=== PATIENT | female | born 2005 | race Caucasian/White ===

== ENCOUNTER 2025-01-13 15:02 | Emergency (ER) | payer BC, SELFPAY ==
[2025-01-13 15:06] VITALS: BP 134/93
[2025-01-13] MEDS: NSS 1000 IV (16:17)
[2025-01-13] MEDS: ZOFRAN 4 MG IV (16:17)
[2025-01-13 16:21] VITALS: BMI 23.8
[2025-01-13 16:33] LABS: % Basophils 0.7 % (0-2); % Eosinophils 0.9 % (0-6); % Immature Granulocytes 0.3 % (0-0.5); % Lymphocytes 28.7 % (20.5-51.1); % Monocytes 7.9 % (1.7-9.3); % Neutrophils 61.5 % (42.2-75.2); Absolute Basophils 0.1 10^3/uL (0-0.2); Absolute Eosinophils 0.1 10^3/uL (0-0.7); Absolute Lymphocytes 2.1 10^3/uL (1.2-3.4); Absolute Monocytes 0.6 10^3/uL (0.1-0.6); Absolute Neutrophils 4.6 10^3/uL (1.4-6.5); Hematocrit 40.7 % (37.0-47.0); Hemoglobin 13.8 g/dL (12.0-16.0); Mean Corp Hgb Conc. 33.9 g/dL (33.0-37.0); Mean Corpuscular Hgb 29.8 pg (27.0-31.0); Mean Corpuscular Volume 87.9 fL (81.0-99.0); Mean Platelet Volume 10.8 fL (7.4-10.4); Nucleated Red Blood Cells % 0 %; Platelet Count 272 10^3/uL (130-400); Red Blood Cell Count 4.63 10^6/uL (4.20-5.40); Red Cell Dist. Width 13.9 % (11.5-14.5); White Blood Cell Count 7.5 10^3/uL (4.8-10.8)
--- NOTE | 2025-01-13 16:33 | ED.GENMED ---
History of Present Illness
General
Chief Complaint: Abdominal Symptoms
Source: patient
Exam Limitations: none
Time Seen by Provider: 01/13/25 15:31
Nursing documentation reviewed up to this point in time: agreed with
History of Present Illness
History of Present Illness:
Patient is a 19-year-old female presenting to the emergency department following 1 week of nausea, vomiting, diarrhea and concern for dehydration. Patient states symptoms started last Saturday with nausea and vomiting which was shortly followed by
diarrhea. She did have episode of bloody diarrhea on Saturday however this has resolved. Patient denies any significant abdominal pain. She reports subjective fevers at home 2 nights ago. Patient denies any urinary symptoms. No chest pain or
shortness of breath. Patient was seen by her primary care provider today who was concerned that she may be dehydrated and was sent to the ED for IV fluids.
She does report past history of rectal bleeding secondary to internal hemorrhoids.
Patient's dad does report similar symptoms last Saturday although his symptoms resolved.
Patient reports a somewhat lengthy GI history and was being seen by Joseph with frequent vomiting although no cause was identified she states that she has never had a colonoscopy or endoscopy.
Review of Systems
Review of Systems
Allergies reviewed?: Yes
All Other Systems: ROS reviewed and negative except as documented in HPI and ROS
Phy Exam
Physical Exam
Physical Exam:
Vitals: Mildly tachycardic, otherwise vital signs stable. Afebrile
General: Patient is well appearing, no acute distress. Nontoxic appearing
Skin: Warm and dry, no rashes or lesions
Head: Normocephalic, atraumatic
Eyes: Sclera nonicteric. EOMs intact. No nystagmus.
Throat: Protecting airway
Neck: Normal ROM, no cervical spine tenderness, no meningismus
Cardiac: Tachycardic, normal rhythm, no murmurs.
Pulm: Normal respiratory effort, no wheezes, rales, rhonchi heard on exam.
Abdomen: Abdomen soft. Very mild diffuse abdominal tenderness. No tenderness McBurney's point. No rebound tenderness or guarding.
Extremities: No evidence of cyanosis or edema. Palpable DP pulses bilateral
Neuro: AAOx3. Grossly intact.
Psychiatric: Normal affect.
Course
Orders/Labs/Results
Orders:
Orders
01/13/25 16:06
0.9% Sodium Chloride 1000 ml [Nss] 1,000 ml IV BOLUS
Ondansetron Injectable [Zofran] 4 mg IV NOW STA
Test Result ONCE
01/13/25 16:18
COVID-19 Antigen Urgent
Source: Nasal Swab
Complete Blood Count/With Diff Urgent
Comprehensive Metabolic Panel Urgent
HCG, Serum Qualitative Screen Urgent
Lipase Urgent
Influenza A+B Rapid Molecular Urgent
ALPHONSE Source: Nasal Swab
Specimen Description:
Abnormal Lab Results
01/13/25
16:18
MPV 10.8 H fL
(7.4-10.4)
Total Bilirubin 2.2 H mg/dl
(0.2-1.3)
Alkaline Phosphatase 37 L U/L
(38-126)
Albumin 5.1 H g/dl
(3.5-5.0)
01/13/25 16:18
01/13/25 16:18
Vital Signs
Initial and Last Documented VS:
Initial Vital Signs
Temp Pulse Resp BP Pulse Ox
98.7 F 106 20 134/93 98
01/13/25 15:06 01/13/25 15:06 01/13/25 15:06 01/13/25 15:06 01/13/25 15:06
Last Documented Vital Signs
Temp Pulse Resp BP Pulse Ox
98.5 F 77 16 120/84 99
01/13/25 18:12 01/13/25 18:12 01/13/25 18:12 01/13/25 18:12 04/30/25 18:52
MDM/Problems Addressed
Differential Diagnosis Includes:
Not limited to: Viral gastroenteritis, colitis, constipation, appendicitis, etc.
MDM/Problems Addressed:
19-year-old female presents with concerns of dehydration after seven days of nausea, vomiting, and diarrhea. Symptoms seem to be improving. No known fever or abdominal pain. Vitals and physical exam as above. Patient overall well appearing. Mildly
tachycardic on arrival with clear lung sounds. Abdomen soft with no focal tenderness. No tenderness at McBurney's point. She does have mildly dry mucous membranes. Symptoms most consistent with likely viral gastroenteritis as patients father also
had similar symptoms. Lower suspicion for acute intra-abdominal infection given benign abdominal exam. Will check screening labs give IV fluids and Zofran and reassess.
Update: labs reviewed. No leukocytosis. Chemistry unremarkable other than elevation of bilirubin which patient states is chronic as she has Gilbert�s disease. Patient feeling much better after IV fluids and Zofran. Repeat abdominal exam performed
which remains soft and nontender. Very low suspicion for acute intro abdominal infection giving patient afebrile with no leukocytosis and benign abdominal exam. Do not feel CT imaging warranted at this time. Vital signs have normalized. Patient
tolerated water and crackers without vomiting. Feel patient for discharge home with primary care/G.I. follow up. Return precautions discussed. Patient and patient�s family comfortable with plan. All questions answered.
Chronic conditions affecting care:
N/A
Acute Exacerbation and/or Progression of Chronic Illness:
N/A
*Pulse Oximetry
Patient hypoxic: no
*EKG
Interpreted by ED Provider?: NA
*Gas Scrubber Operator Interpretation
Rate: Gas Scrubber Operator- N/A
*Critical Care Note
Total Time (30-74mins, 75-104mins- exclusive of procedures): Not Applicable
ED Attending Note
-
Portions of this chart may have been created with voice recognition software.� Occasional wrong word or��sound alike� substitutions may have occurred due to the inherent limitations of voice recognition software.
Discharge Plan
Departure
Patient Disposition: Home (Routine Discharge)
Date of Disposition: 01/13/25
Time of Disposition: 18:37
Patient with high blood pressure during this ER visit?: Yes
Condition: Good
Covid-19: Negative COVID-19
Discharge Problem:
Nausea, vomiting, and diarrhea
Instructions: Dehydration, Adult (DC), [place] Diet, Nausea and Vomiting, Adult (DC), BLOOD PRESSURE
Prescriptions:
New
ondansetron 4 mg tablet,disintegrating
4 mg PO Q8H PRN (Reason: nausea and vomiting) Qty: 7 0RF
Referrals:
Chapincito Gonzalez MD [Active] - Next open appointment
Dee St MD [Family Provider] - Follow up in 5-7 days
Activity Restrictions/Additional Instructions:
RETURN TO THE EMERGENCY DEPARTMENT WITH ANY FEVER, CHILLS, INTRACTABLE NAUSEA/VOMITING, ABDOMINAL PAIN, SIGNS OF SEVERE DEHYDRATION, OR ANY OTHER CONCERNS
- You received a liter of IV fluids and IV Zofran in the emergency department.
- As discussed�your bilirubin level was elevated at 2.2 today. Otherwise your lab work showed acute abnormalities.
- The cause of your symptoms is unknown although I suspect you likely had a viral GI illness. It is important you stay well-hydrated. You should eat a bland diet over the next few days and slowly advance as tolerated. You can take Zofran every 8
hours as needed for persistent nausea/vomiting. This has been sent to your pharmacy.
- Follow-up with your primary care for further evaluation/management within the week to ensure that symptoms are improving. You should also follow-up with a GI doctor for further evaluation. Their contact information has been provided for you
above.
Monitor your symptoms closely and return to the emergency department with any acute worsening/new symptoms or any other concerns
Interventions
Interventions:
*Risk Screen - Suicide Last Done: 01/13/25 17:28
*General Assessment Last Done: 01/13/25 17:28
*Neglect/Abuse Screening Last Done: 01/13/25 18:52
*ED- Fall Risk Assessment Last Done: 01/13/25 17:28
*ED COVID-19 Vaccine History Last Done: 01/13/25 17:28
*Nursing Disposition Last Done: 01/13/25 18:52
XE-Bubqmo-Yqftmkwdqa Assessment Last Done: 01/13/25 18:13
Discharge Date and Time
Discharge Date/Time: 01/13/25 18:53
Print Language: KOSOVAN
[2025-01-13 16:50] LABS: COVID-19 Antigen Negative (Negative)
[2025-01-13 16:52] LABS: HCG, Serum Qualitative Screen Negative
[2025-01-13 16:56] LABS: ALT (SGPT) 22 U/L (0-35); AST (SGOT) 25 U/L (14-36); Albumin 5.1 g/dl (3.5-5.0); Alkaline Phosphatase 37 U/L (38-126); Blood Urea Nitrogen 13 mg/dl (7-17); Calcium 9.9 mg/dl (8.4-10.2); Carbon Dioxide 24 mmol/L (22-30); Chloride 105 mmol/L (98-107); Estimated Creatinine Clearance 101 ml/min; Glucose 84 mg/dl (70-99); Sodium 142 mmol/L (135-145); Total Bilirubin 2.2 mg/dl (0.2-1.3); Total Protein 7.8 g/dl (6.3-8.2); eGFR > 60.00
[2025-01-13 17:11] LABS: Lipase 143 U/L (23-300)
[2025-01-13 18:12] VITALS: BP 120/84
== END 2025-01-13 18:53 | disposition home or self-care (01) ==
LOC: EMR 15:02
PROVIDERS: Physician Assistant; EMERGENCY PHYSICIAN Emergency Medicine; FAMILY PHYSICIAN Pediatrics
DX: R11.2 Nausea with vomiting, unspecified (principal); R19.7 Diarrhea, unspecified
CPT/HCPCS: 99283; 96374; 96361; 80053; 83690; 84703; 85025; 87502; 87811